=== PATIENT | female | born 1960 | race Asian ===

== ENCOUNTER 2023-07-14 08:50 | Emergency (ER) | payer OTHER ==
[~2023-07-14] VITALS: Ht 152.4 cm; Wt 49.9 kg
[2023-07-14 08:50] VITALS: BP_SYST 113; PULSE 70; RESP 17; TEMP 98.7; O2SAT 99
[2023-07-14] MEDS ORDERED: IBUP-2018 PO (10:25)
[2023-07-14] MEDS ORDERED: HYDR-3917 PO (10:25)
== END 2023-07-14 10:34 | disposition home or self-care (01) ==
LOC: SED 08:50
DX: S52.325A Nondisplaced transverse fracture of shaft of left radius, initial encounter for closed fracture (principal); Z79.899 Other long term (current) drug therapy; W01.0XXA Fall on same level from slipping, tripping and stumbling without subsequent striking against object, initial encounter; Y93.89 Activity, other specified; Y92.89 Other specified places as the place of occurrence of the external cause; Y99.8 Other external cause status
CPT/HCPCS: 99283